=== PATIENT | male | born 1950 | race Caucasian/White ===

== ENCOUNTER 2016-09-07 23:07 | Inpatient (IN) | payer MEDICARE ==
[2016-09-07] MEDS ORDERED: LEVOFLOXACIN 750MG-D5W PMX 750 MG in DEXTROSE/WATER 1 150ML.BAG IVPB STA (23:18)
[2016-09-07] MEDS ORDERED: methylPREDNISolone SOD SUCCI 125 MG/2 ML VIAL IV STA (23:18)
[2016-09-07] MEDS ORDERED: IPRATROPIUM-ALBUTEROL 3 ML NEB INHALATION STA (23:20)
--- NOTE | 2016-09-07 23:23 | ED ---
SOB HPI - General Chief Complaint: Shortness of Breath Stated Complaint: DAV Time Seen by Provider: 09/07/16 23:09 Source: patient, EMS Mode of arrival: EMS - History of Present Illness Initial Comments: Is a 66-year-old male with a history of COPD and afib presents emergency department for worsening shortness of breath or he states that he's been having symptoms over the last 3 months. He's been on 3 courses of antibiotics and on multiple doses of steroids. He is not improved. He was seen by a home care nurse earlier today who gave him a shot of Rocephin and Depo-Medrol. He was told that he did not improve that he should come to the hospital. Patient states he felt more short of breath or decided to come in. He states that he is coughing up some sputum the states is green. He feels chills all the time however no fevers. He denies any lower extremity swelling. No chest pain. No other complaints. - Related Data Home Medications Medication Instructions Recorded Confirmed ALPRAZolam [Xanax] 0.5 mg PO TID PRN 12/06/13 09/07/16 Carvedilol [Coreg] 6.25 mg PO BID 12/06/13 09/07/16 Cholecalciferol [Vitamin D3] 1 tab PO DAILY 12/06/13 09/07/16 Cyanocobalamin [Vitamin B-12] 500 mcg PO DAILY@1200 12/06/13 09/07/16 DULoxetine HCL [Cymbalta] 60 mg PO HS 12/06/13 09/07/16 Docusate Sodium [Stool Softener] 100 mg PO BID 12/06/13 09/07/16 Dutasteride/Tamsulosin HCl [Jennifer 1 cap PO DAILY 12/06/13 09/07/16 0.5-0.4 mg Capsule] Insulin NPL/Insulin Lispro 60 unit SQ W/SUPPER 12/06/13 09/07/16 [humaLOG Mix 75-25 Kwikpen] Ipratropium/Albuterol Sulfate 1 puff INHALATION RT-BID 12/06/13 09/07/16 [Combivent Respimat Inhaler] Ipratropium/Albuterol Sulfate 3 ml INHALATION RT-QID 12/06/13 09/07/16 [Duoneb 0.5 mg-3 mg/3 ml Soln] Levothyroxine Sodium [Synthroid] 75 mcg PO DAILY 12/06/13 09/07/16 Montelukast [Singulair] 10 mg PO DAILY 12/06/13 09/07/16 Omeprazole [PriLOSEC] 20 mg PO DAILY 12/06/13 09/07/16 Rivaroxaban [Xarelto] 15 mg PO DAILY 12/06/13 09/07/16 Silver Sulfadiazine [Silvadene 1 applicate TOPICAL BID 12/06/13 09/07/16 Cream] Simvastatin [Zocor] 40 mg PO HS 12/06/13 09/07/16 Tamsulosin HCl [Flomax] 0.4 mg PO DAILY 12/06/13 09/07/16 Torsemide [Demadex] 50 mg PO BID 12/06/13 09/07/16 Acetaminophen/Diphenhydramine 1 tab PO HS PRN 09/07/16 09/07/16 [Tylenol PM 500-25mg] Amitriptyline HCl 50 mg PO HS 09/07/16 09/07/16 Clindamycin HCl [Cleocin] 300 mg PO TID 09/07/16 09/07/16 Diclofenac Sodium [Voltaren Gel] 1 applic TOPICAL Q6H PRN 09/07/16 09/07/16 HYDROcodone/APAP 10-325MG [[place] 1 tab PO Q4HR PRN 09/07/16 09/07/16 10-325] Lactulose 10 gm PO Q8H PRN 09/07/16 09/07/16 Metolazone [Zaroxolyn] 2.5 mg PO DAILY 09/07/16 09/07/16 Previous Rx's Medication Instructions Recorded Potassium Chloride [Klor-Con 20] 40 meq PO DAILY #30 tab 12/06/13 Allergies Allergy/AdvReac Type Severity Reaction Status Date / Time Penicillins Allergy Unknown Verified 09/07/16 23:52 Childhood pregabalin [From Lyrica] AdvReac Confusion Verified 09/07/16 23:52 Review of Systems ROS Statement: Those systems with pertinent positive or pertinent negative responses have been documented in the HPI. ROS Other: All systems not noted in ROS Statement are negative. Past Medical History Past Medical History: COPD, Diabetes Mellitus, Hyperlipidemia, Hypertension Additional Past Medical History / Comment(s): hip pain, hypothyroidism, History of Any Multi-Drug Resistant Organisms: None Reported Past Surgical History: Bariatric Surgery, Hernia Repair Additional Past Surgical History / Comment(s): lumbar fusion, Past Psychological History: Anxiety Smoking Status: Current every day smoker Past Alcohol Use History: None Reported Past Drug Use History: None Reported General Exam - General Exam Comments Initial Comments: Constitutional: Awake alert Appears comfortable Head: Normocephalic atraumatic Eyes: no conjunctival injection No scleral icterus EOMI Neck: No JVD Supple Heart: Irregularly irregular normal S1-S2 no murmurs Lungs: There is expiratory wheezing bilaterally No rales Abdomen: Soft nondistended nontender Extremities: Non edematous DP pulses intact Radial pulses intact Neuro: A&Ox3 No focal neurologic deficits Psych: Appropriate mood and affect Course Vital Signs 09/07/16 09/07/16 09/07/16 23:09 23:17 23:31 Temperature 98.2 F Pulse Rate 88 78 Respiratory 20 20 Rate Blood Pressure 174/85 O2 Sat by Pulse 100 Oximetry 09/07/16 09/08/16 23:48 00:00 Temperature Pulse Rate 90 85 Respiratory 18 Rate Blood Pressure 147/60 O2 Sat by Pulse 100 Oximetry - Reevaluation(s) Reevaluation #1: 09/07/16 23:25 EKG showing it to fibrillation with a rate of 80. No ST segment changes or T- wave inversions. QTC is 433. Other intervals are normal. No ectopy. Medical Decision Making - Medical Decision Making This is a 66-year-old male presents emergency department for shortness of breath. He has a history of COPD. He is been on multiple courses of antibiotics and steroids over the last 3 months however continues to worsen. Nares stated that he felt the worst they've never felt her last 3 months decided to come in. He was wheezy bilaterally. Chest x-ray shows possible infiltrate however it appears chronic. He has no leukocytosis. He does have chronic hypercapnic respiratory failure that is well compensated. I started him on breathing treatments and he states that he feels improved. I also gave him Levaquin. Spoke with Dr. Maki who wanted Dr. Grayson Jade to see the patient. Patient was updated that he will be admitted. All questions were answered. - Lab Data Result diagrams: 09/07/16 23:15 09/07/16 23:15 Lab Results 09/07/16 09/07/16 09/07/16 Range/Units 23:15 23:15 23:15 WBC 10.0 (3.8-10.6) k/uL RBC 4.76 (4.30-5.90) m/uL Hgb 13.0 (13.0-17.5) gm/dL Hct 42.4 (39.0-53.0) % MCV 89.0 (80.0-100.0) fL MCH 27.3 (25.0-35.0) pg MCHC 30.7 L (31.0-37.0) g/dL RDW 15.5 (11.5-15.5) % Plt Count 238 (150-450) k/uL Neutrophils % 85 % Lymphocytes % 10 % Monocytes % 3 % Eosinophils % 1 % Basophils % 0 % Neutrophils # 8.5 H (1.3-7.7) k/uL Lymphocytes # 1.0 (1.0-4.8) k/uL Monocytes # 0.3 (0-1.0) k/uL Eosinophils # 0.1 (0-0.7) k/uL Basophils # 0.0 (0-0.2) k/uL Hypochromasia Moderate PT (9.0-12.0) sec INR (<1.1) APTT (22.0-30.0) sec VBG pH (7.31-7.41) VBG pCO2 (37-51) mmHg VBG HCO3 (24-28) mmol/L Sodium 136 L (137-145) mmol/L Potassium 4.5 (3.5-5.1) mmol/L Chloride 79 L* (98-107) mmol/L Carbon Dioxide 51 H* (22-30) mmol/L Anion Gap 6 mmol/L BUN 85 H* (9-20) mg/dL Creatinine 0.80 (0.66-1.25) mg/dL Est GFR (MDRD) Af Amer >60 (>60 ml/min/1.73 sqM) Est GFR (MDRD) Non-Af >60 (>60 ml/min/1.73 sqM) Glucose 182 H (74-99) mg/dL Plasma Lactic Acid Elias (0.7-2.0) mmol/L Calcium 9.6 (8.4-10.2) mg/dL Total Bilirubin 0.4 (0.2-1.3) mg/dL AST 16 L (17-59) U/L ALT 31 (21-72) U/L Alkaline Phosphatase 105 (38-126) U/L Total Creatine Kinase <20 L (55-170) U/L CK-MB (CK-2) 1.4 (0.0-2.4) ng/mL CK-MB (CK-2) Rel Index 0.0 Troponin I <0.012 (0.000-0.034) ng/mL NT-Pro-B Natriuret Pep pg/mL Total Protein 6.1 L (6.3-8.2) g/dL Albumin 3.3 L (3.5-5.0) g/dL 09/07/16 09/07/16 09/07/16 Range/Units 23:15 23:15 23:15 WBC (3.8-10.6) k/uL RBC (4.30-5.90) m/uL Hgb (13.0-17.5) gm/dL Hct (39.0-53.0) % MCV (80.0-100.0) fL MCH (25.0-35.0) pg MCHC (31.0-37.0) g/dL RDW (11.5-15.5) % Plt Count (150-450) k/uL Neutrophils % % Lymphocytes % % Monocytes % % Eosinophils % % Basophils % % Neutrophils # (1.3-7.7) k/uL Lymphocytes # (1.0-4.8) k/uL Monocytes # (0-1.0) k/uL Eosinophils # (0-0.7) k/uL Basophils # (0-0.2) k/uL Hypochromasia PT 12.4 H (9.0-12.0) sec INR 1.3 (<1.1) APTT 28.5 (22.0-30.0) sec VBG pH (7.31-7.41) VBG pCO2 (37-51) mmHg VBG HCO3 (24-28) mmol/L Sodium (137-145) mmol/L Potassium (3.5-5.1) mmol/L Chloride (98-107) mmol/L Carbon Dioxide (22-30) mmol/L Anion Gap mmol/L BUN (9-20) mg/dL Creatinine (0.66-1.25) mg/dL Est GFR (MDRD) Af Amer (>60 ml/min/1.73 sqM) Est GFR (MDRD) Non-Af (>60 ml/min/1.73 sqM) Glucose (74-99) mg/dL Plasma Lactic Acid Elias 1.3 (0.7-2.0) mmol/L Calcium (8.4-10.2) mg/dL Total Bilirubin (0.2-1.3) mg/dL AST (17-59) U/L ALT (21-72) U/L Alkaline Phosphatase (38-126) U/L Total Creatine Kinase (55-170) U/L CK-MB (CK-2) (0.0-2.4) ng/mL CK-MB (CK-2) Rel Index Troponin I (0.000-0.034) ng/mL NT-Pro-B Natriuret Pep 214 pg/mL Total Protein (6.3-8.2) g/dL Albumin (3.5-5.0) g/dL 09/07/16 Range/Units 23:47 WBC (3.8-10.6) k/uL RBC (4.30-5.90) m/uL Hgb (13.0-17.5) gm/dL Hct (39.0-53.0) % MCV (80.0-100.0) fL MCH (25.0-35.0) pg MCHC (31.0-37.0) g/dL RDW (11.5-15.5) % Plt Count (150-450) k/uL Neutrophils % % Lymphocytes % % Monocytes % % Eosinophils % % Basophils % % Neutrophils # (1.3-7.7) k/uL Lymphocytes # (1.0-4.8) k/uL Monocytes # (0-1.0) k/uL Eosinophils # (0-0.7) k/uL Basophils # (0-0.2) k/uL Hypochromasia PT (9.0-12.0) sec INR (<1.1) APTT (22.0-30.0) sec VBG pH 7.40 (7.31-7.41) VBG pCO2 92 H* (37-51) mmHg VBG HCO3 56 H* (24-28) mmol/L Sodium (137-145) mmol/L Potassium (3.5-5.1) mmol/L Chloride (98-107) mmol/L Carbon Dioxide (22-30) mmol/L Anion Gap mmol/L BUN (9-20) mg/dL Creatinine (0.66-1.25) mg/dL Est GFR (MDRD) Af Amer (>60 ml/min/1.73 sqM) Est GFR (MDRD) Non-Af (>60 ml/min/1.73 sqM) Glucose (74-99) mg/dL Plasma Lactic Acid Elias (0.7-2.0) mmol/L Calcium (8.4-10.2) mg/dL Total Bilirubin (0.2-1.3) mg/dL AST (17-59) U/L ALT (21-72) U/L Alkaline Phosphatase (38-126) U/L Total Creatine Kinase (55-170) U/L CK-MB (CK-2) (0.0-2.4) ng/mL CK-MB (CK-2) Rel Index Troponin I (0.000-0.034) ng/mL NT-Pro-B Natriuret Pep pg/mL Total Protein (6.3-8.2) g/dL Albumin (3.5-5.0) g/dL Disposition Clinical Impression: COPD exacerbation Disposition: ADMITTED IP TO THIS HOSP Condition: Stable
[2016-09-07 23:45] LABS: Basophils % (A) 0 %; CHCM 30.5; Eosinophils # (A) 0.1 k/uL (0-0.7); Eosinophils % (A) 1 %; HCT 42.4 % (39.0-53.0); Hypochromasia Moderate; Luc % (Auto) 1; Lymphocytes % (A) 10 %; MCH 27.3 pg (25.0-35.0); MCHC 30.7 g/dL (31.0-37.0); Mean Platelet Volume 7.3; Monocytes # (A) 0.3 k/uL (0-1.0); Monocytes % (A) 3 %; Neutrophils # (A) 8.5 k/uL (1.3-7.7); Neutrophils % (A) 85 %; RBC 4.76 m/uL (4.30-5.90); RDW 15.5 % (11.5-15.5); WBC (Perox) 10.36
[2016-09-07 23:52] LABS: INR 1.3 (<1.1); Partial Thromboplastin Time 28.5 sec (22.0-30.0); Prothrombin Time 12.4 sec (9.0-12.0)
[2016-09-07 23:54] LABS: ALT 31 U/L (21-72); AST 16 U/L (17-59); Alkaline Phosphatase 105 U/L (38-126); Calcium 9.6 mg/dL (8.4-10.2); Glucose 182 mg/dL (74-99); Non-African American GFR(MDRD) >60 (>60 ml/min/1.73 sqM); Potassium 4.5 mmol/L (3.5-5.1); Sodium 136 mmol/L (137-145); Total Bilirubin 0.4 mg/dL (0.2-1.3); Total Protein 6.1 g/dL (6.3-8.2)
[2016-09-07 23:59] LABS: VBG PH 7.4 (7.31-7.41)
[2016-09-08] LABS: Anion Gap 6 mmol/L
[2016-09-08 00:04] LABS: Blood Urea Nitrogen 85 mg/dL (9-20); Carbon Dioxide 51 mmol/L (22-30); Chloride 79 mmol/L (98-107)
[2016-09-08 00:06] LABS: Creatine Kinase <20 U/L (55-170)
--- NOTE | 2016-09-08 00:11 | XR ---
EXAM: XR Chest, 1 View. CLINICAL HISTORY: Reason: sob TECHNIQUE: Frontal view of the chest. COMPARISON: CXR 12/06/13 FINDINGS: Lungs: Left lower lobe atelectasis and infiltrate, similar to prior study. Right basilar atelectasis. Pleural space: Small left pleural effusion. No pneumothorax. Heart: The heart size appears enlarged, likely from projection also stable. Mediastinum: Calcified tortuous aorta, otherwise unremarkable. Bones/joints: Unremarkable. IMPRESSION: Left lower lobe atelectasis and infiltrate, similar to prior study. Right basilar atelectasis. Small left pleural effusion.
[2016-09-08 00:19] LABS: Creatine Kinase MB 1.4 ng/mL (0.0-2.4); Troponin I <0.012 ng/mL (0.000-0.034)
[2016-09-08] MEDS ORDERED: HYDROcodone/APAP 10-325MG 1 EACH TAB PO PRN ×2 (01:15→08:11)
[2016-09-08] MEDS: IPRATROPIUM-ALBUTEROL 3 ML NEB INHALATION PRN ×2 (03:43→07:25)
[2016-09-08] MEDS: methylPREDNISolone SOD SUCCI 125 MG/2 ML VIAL IV SCH ×2 (05:25→13:34)
[2016-09-08 07:09] LABS: Glucose,Whole Blood 232 mg/dL (75-99)
[2016-09-08] MEDS ORDERED: DICLOFENAC SODIUM GEL 100 GM TUBE TOPICAL PRN (08:11)
[2016-09-08] MEDS: INSULIN LISPRO (humaLOG) 300 UNIT/3 ML VIAL SQ SCH ×2 (08:11→13:34)
[2016-09-08] MEDS ORDERED: LACTULOSE 20 GM/30 ML CUP PO PRN (08:11)
[2016-09-08] MEDS ORDERED: ALPRAZolam 0.5 MG TAB PO PRN (08:11)
[2016-09-08] MEDS ORDERED: RX INFO: IV CONTRAST WAS GIVEN 1 EACH MISC MISCELLANE PRN (08:15)
[2016-09-08] MEDS ORDERED: CARVEDILOL 6.25 MG TAB PO SCH (08:15)
[2016-09-08 08:17] VITALS: BP 145/80; RESP 16; TEMP 97.9
[2016-09-08] MEDS ORDERED: LEVOTHYROXINE 75 MCG TAB PO SCH (08:30)
[2016-09-08] MEDS ORDERED: RIVAROXABAN 15 MG TAB PO SCH (08:30)
[2016-09-08] MEDS ORDERED: POTASSIUM CHLORIDE ER 20 MEQ TAB.ER PO SCH (09:00)
[2016-09-08] MEDS ORDERED: CLINDAMYCIN 150 MG CAP PO SCH (09:00)
[2016-09-08] MEDS ORDERED: MONTELUKAST 10 MG TAB PO SCH (09:00)
[2016-09-08] MEDS ORDERED: METOLAZONE 2.5 MG TAB PO SCH (09:00)
[2016-09-08] MEDS ORDERED: TORSEMIDE 20 MG TAB PO SCH (09:00)
[2016-09-08] MEDS ORDERED: FINASTERIDE 5 MG TAB PO SCH (09:00)
[2016-09-08] MEDS ORDERED: DOCUSATE 100 MG CAP PO SCH (09:00)
[2016-09-08] MEDS ORDERED: TAMSULOSIN 0.4 MG CAP.ER.24H PO SCH (09:00)
--- NOTE | 2016-09-08 11:10 | P.CNPUL ---
History of Present Illness Consult date: 09/08/16 Requesting physician: Jose Daniel Maki Reason for consult: COPD Chief complaint: shortness of breath History of present illness: Mr. Albin Moeller is a 66-year-old male being evaluated and examined today on the fifth floor with family at bedside. He has a history of COPD severe in nature. He presented to the ER last night with shortness of breath that has been going on for the last 3 months. He has been on 3 different courses of antibiotics and 3 courses of steroids with outpatient treatment failure, therefore agreed to come to the hospital per his primary care physician. The patient currently uses 2 L of oxygen at home and was using up to 4 L of oxygen inpatient for his current stay. The patient has an intermittent productive cough with green sputum which is thick. He denies any fever or chills at this time. The patient also has medical debility and is bedbound at home, however he has a lift which he uses to get in and out of the pool 3 times a week when he is not sick. Review of Systems 14 point review of system has been completed and is otherwise negative unless stated in the HPI Past Medical History Past Medical History: Atrial Fibrillation, COPD, Diabetes Mellitus, Hyperlipidemia, Hypertension, Renal Disease Additional Past Medical History / Comment(s): hip pain, hypothyroidism, low kidney function History of Any Multi-Drug Resistant Organisms: None Reported Past Surgical History: Bariatric Surgery, Hernia Repair Additional Past Surgical History / Comment(s): lumbar fusion '05 Past Anesthesia/Blood Transfusion Reactions: No Reported Reaction Past Psychological History: Anxiety Smoking Status: Current every day smoker Past Alcohol Use History: None Reported Past Drug Use History: None Reported Medications and Allergies Home Medications Medication Instructions Recorded Confirmed Type ALPRAZolam [Xanax] 0.5 mg PO TID PRN 12/06/13 09/07/16 History Carvedilol [Coreg] 6.25 mg PO BID 12/06/13 09/07/16 History Cholecalciferol [Vitamin D3] 1 tab PO DAILY 12/06/13 09/07/16 History Cyanocobalamin [Vitamin B-12] 500 mcg PO DAILY@1200 12/06/13 09/07/16 History DULoxetine HCL [Cymbalta] 60 mg PO HS 12/06/13 09/07/16 History Docusate Sodium [Stool Softener] 100 mg PO BID 12/06/13 09/07/16 History Dutasteride/Tamsulosin HCl [[place]ennifer 1 cap PO DAILY 12/06/13 09/07/16 History 0.5-0.4 mg Capsule] Insulin NPL/Insulin Lispro 60 unit SQ W/SUPPER 12/06/13 09/07/16 History [humaLOG Mix 75-25 Kwikpen] Ipratropium/Albuterol Sulfate 1 puff INHALATION RT-BID 12/06/13 09/07/16 History [Combivent Respimat Inhaler] Ipratropium/Albuterol Sulfate 3 ml INHALATION RT-QID 12/06/13 09/07/16 History [Duoneb 0.5 mg-3 mg/3 ml Soln] Levothyroxine Sodium [Synthroid] 75 mcg PO DAILY 12/06/13 09/07/16 History Montelukast [Singulair] 10 mg PO DAILY 12/06/13 09/07/16 History Omeprazole [PriLOSEC] 20 mg PO DAILY 12/06/13 09/07/16 History Rivaroxaban [Xarelto] 15 mg PO DAILY 12/06/13 09/07/16 History Silver Sulfadiazine [Silvadene 1 applicate TOPICAL BID 12/06/13 09/07/16 History Cream] Simvastatin [Zocor] 40 mg PO HS 12/06/13 09/07/16 History Tamsulosin HCl [Flomax] 0.4 mg PO DAILY 12/06/13 09/07/16 History Torsemide [Demadex] 50 mg PO BID 12/06/13 09/07/16 History Acetaminophen/Diphenhydramine 1 tab PO HS PRN 09/07/16 09/07/16 History [Tylenol PM 500-25mg] Amitriptyline HCl 50 mg PO HS 09/07/16 09/07/16 History Clindamycin HCl [Cleocin] 300 mg PO TID 09/07/16 09/07/16 History Diclofenac Sodium [Voltaren Gel] 1 applic TOPICAL Q6H PRN 09/07/16 09/07/16 History HYDROcodone/APAP 10-325MG [[place] 1 tab PO Q4HR PRN 09/07/16 09/07/16 History 10-325] Lactulose 10 gm PO Q8H PRN 09/07/16 09/07/16 History Metolazone [Zaroxolyn] 2.5 mg PO DAILY 09/07/16 09/07/16 History Allergies Allergy/AdvReac Type Severity Reaction Status Date / Time Penicillins Allergy Unknown Verified 09/07/16 23:52 Childhood pregabalin [From Lyrica] AdvReac Confusion Verified 09/07/16 23:52 Physical Exam Vitals: Vital Signs Temp Pulse Pulse Resp BP BP Pulse Ox 09/08/16 07:37 92 09/08/16 07:25 95 95 09/08/16 07:00 97.9 F 95 16 145/80 97 09/08/16 03:55 80 09/08/16 03:43 80 09/08/16 02:50 96.8 F L 89 18 134/87 100 09/08/16 01:00 98.3 F 92 20 130/60 100 Intake and Output 09/07/16 09/08/16 09/08/16 22:59 06:59 14:59 Intake Total 240 Balance 240 Intake: Oral 240 Other: # Voids 1 GENERAL EXAM: Alert, resting up in bed. HEAD: Normocephalic. EYES: Normal reaction of pupils, equal size. NOSE: Clear with pink turbinates. THROAT: No erythema or exudates. NECK: No masses, no JVD. CHEST: No chest wall deformity. LUNGS: Patient has inspiratory and expiratory wheezing and rhonchi. He is also diminished at the bases. Lots of congestion noted CVS: S1 and S2 normal with no audible mumurs, regular rhythm. ABDOMEN: No hepatosplenomegaly, normal bowel sounds, no guarding or rigidity. EXTREMITIES: No edema noted, pedal pulses palpable. SKIN: No rashes CENTRAL NERVOUS SYSTEM: No focal deficits, tone is weak in all 4 extremities. Results - Laboratory Findings CBC and BMP: 09/07/16 23:15 09/07/16 23:15 PT/INR, D-dimer PT 12.4 sec (9.0-12.0) H 09/07/16 23:15 INR 1.3 (<1.1) 09/07/16 23:15 Abnormal lab findings: Abnormal Labs 09/08/16 07:05 POC Glucose (mg/dL) 232 H - Diagnostic Findings Chest x-ray: report reviewed, image reviewed Assessment and Plan Plan: Assessment Acute exacerbation of COPD Tracheobronchitis Diabetes mellitus Hypertension Plan Continue the patient on IV antibiotics and IV steroids as is as well as aerosol bronchodilators. The patient will go for a CAT scan later today and further treatment will be adjusted pending what that reveals. We will continue monitoring labs and adjust treatment as necessary.
[2016-09-08 11:34] LABS: Glucose,Whole Blood 284 mg/dL (75-99)
--- NOTE | 2016-09-08 11:35 | CT ---
EXAMINATION TYPE: CT chest w con DATE OF EXAM: 09/08/2016 10:25 AM COMPARISON: NONE HISTORY: Patient poor historian. Rule out COPD/infiltrate. CT DLP: 1232.7 mGycm, Automated exposure control for dose reduction was used. CONTRAST: Performed injected with 80 mL of Visipaque 320. TECHNIQUE: Axial images were obtained at 5 mm thick sections. Reconstructed images are reviewed on [employer] computer in the coronal plane. FINDINGS: Portion of the thyroid visualized is normal. Small area of pneumonitis is in the left suprahilar region. Series 5 image 28 is mild infiltrate is w ithin the dependent portions of the lung bases bilaterally. This could be related atelectasis. No enlarged mediastinal or hilar adenopathy is evident. The ascending aorta diameter at the level o f the main pulmonary artery is 3.3 cm. The main pulmonary artery diameter at the bifurcation is 3.3 cm. There may be some coronary artery calcification present. Limited CT sections are obtained through the upper abdomen. Postsurgical changes are within the stoma ch. Gallstones are present. Bilateral renal cysts are present. IMPRESSIONS: 1. Bibasilar infiltrates. Correlate for atelectasis. Developing pneumonia could be considered. This c ould be followed as clinically indicated. 2. Cholelithiasis
[2016-09-08 11:47] VITALS: PULSE 95
--- NOTE | 2016-09-08 11:59 | P.DS ---
Providers Date of admission: 09/08/16 00:41 Expected date of discharge: 09/08/16 Attending physician: Jose Daniel Maki Consults: Dr. Jade Primary care physician: Jose Daniel Maki [place] [facility] Course: A 66-year-old male who is well known to Dr. Maki service presented on the day of admission from home after patient reportedly was experiencing an episode of shortness of breath. Patient stated he had been having the symptoms for the past 3 months. And he had been on 3 courses of antibiotics and on multiple doses of steroids there's been no noted improvement. Patient states home care nurse to come in earlier in the day and gave him a shot of Rocephin and Depo- Medrol with no noted improvement. He states he was told to come into the hospital to be evaluated. Patient was being seen this morning with the attending the bedside. Patient is adamant that he be discharged cannot stay at the hospital cannot sleep in the hospital is insisting that he be discharged home. Patient has limited mobility is wheelchair bedbound. Patient states that he actually feels better there's less shortness of breath he feels he is back to his baseline and wants to go home. Patient did have a CAT scan of the chest it did show bibasilar infiltrates developing pneumonia would need to be considered. Patient states that he uses oxygen around the clock 2 L at home. He has had intermittent episodes of coughing has been coughing up greenish color. Secretions influenza A and B was negative Patient has a history of diabetes, COPD, hyperlipidemia, hypertension atrial fibrillation. Patient is a current every day smoker. Patient has been medically debilitated with wheelchair bedbound for the past several years he uses a lift his provides for 24 7 care. According to the and the patient is not sick he does go in and out of a pool 3 times a week for therapy Subsequent the patient was discharged home with the plan that Dr. Maki will be making a home visit on Sunday to see the patient patient is to resume same home care Impression discharge diagnosis Chronic physical debility limited mobility wheelchair bedbound Morbid obesity BMI 50 Current every day smoker COPD Chronic hypoxic respiratory failure supplement 2 L nasal cannula oxygen around the clock History of bariatric surgery for weight loss Anxiety disorder nonspecified Acute exacerbation COPD with tracheobronchitis Chronic bronchitis Chronic dyspnea Essential hypertension Morbid obesity suspect obstructive sleep apnea on no CPAP therapy no prior sleep study Peripheral neuropathy likely due to type 2 diabetes Suspect cor pulmonale Chronic persistent atrial fibrillation on Xarelto 15 mg daily The above dictated assessment and findings were discussed with Dr. Maki Impression and the plan of care have been dictated as directed. Melisa Reid nurse practitioner acting as a scribe for Dr. Maki Patient Condition at Discharge: Stable Plan - Discharge Summary New Discharge Prescriptions: Levofloxacin [Levaquin] 500 mg PO Q24H #10 tab Discharge Medication List ALPRAZolam [Xanax] 0.5 mg PO TID PRN 12/06/13 [History] Carvedilol [Coreg] 6.25 mg PO BID 12/06/13 [History] Cholecalciferol [Vitamin D3] 1 tab PO DAILY 12/06/13 [History] Cyanocobalamin [Vitamin B-12] 500 mcg PO DAILY@1200 12/06/13 [History] DULoxetine HCL [Cymbalta] 60 mg PO HS 12/06/13 [History] Docusate Sodium [Stool Softener] 100 mg PO BID 12/06/13 [History] Dutasteride/Tamsulosin HCl [Jennifer 0.5-0.4 mg Capsule] 1 cap PO DAILY 12/06/13 [ History] Insulin NPL/Insulin Lispro [humaLOG Mix 75-25 Kwikpen] 60 unit SQ W/SUPPER 12/06 [History] Ipratropium/Albuterol Sulfate [Combivent Respimat Inhaler] 1 puff INHALATION RT- BID 12/06/13 [History] Ipratropium/Albuterol Sulfate [Duoneb 0.5 mg-3 mg/3 ml Soln] 3 ml INHALATION RT- QID 12/06/13 [History] Levothyroxine Sodium [Synthroid] 75 mcg PO DAILY 12/06/13 [History] Montelukast [Singulair] 10 mg PO DAILY 12/06/13 [History] Omeprazole [PriLOSEC] 20 mg PO DAILY 12/06/13 [History] Potassium Chloride [Klor-Con 20] 40 meq PO DAILY #30 tab 12/06/13 [Rx] Rivaroxaban [Xarelto] 15 mg PO DAILY 12/06/13 [History] Silver Sulfadiazine [Silvadene Cream] 1 applicate TOPICAL BID 12/06/13 [History] Simvastatin [Zocor] 40 mg PO HS 12/06/13 [History] Tamsulosin HCl [Flomax] 0.4 mg PO DAILY 12/06/13 [History] Torsemide [Demadex] 50 mg PO BID 12/06/13 [History] Acetaminophen/Diphenhydramine [Tylenol PM 500-25mg] 1 tab PO HS PRN 09/07/16 [ History] Amitriptyline HCl 50 mg PO HS 09/07/16 [History] Clindamycin HCl [Cleocin] 300 mg PO TID 09/07/16 [History] Diclofenac Sodium [Voltaren Gel] 1 applic TOPICAL Q6H PRN 09/07/16 [History] HYDROcodone/APAP 10-325MG [[place] 10-325] 1 tab PO Q4HR PRN 09/07/16 [History] Lactulose 10 gm PO Q8H PRN 09/07/16 [History] Metolazone [Zaroxolyn] 2.5 mg PO DAILY 09/07/16 [History] Levofloxacin [Levaquin] 500 mg PO Q24H #10 tab 09/08/16 [Rx] Follow up Appointment(s)/Referral(s): Grayson Jade MD [STAFF PHYSICIAN] - 1 Week Jose Daniel Maki MD [Primary Care Provider] - 3 Days Activity/Diet/Wound Care/Special Instructions: Dr. Maki will see patient Sunday or Sunday next week for home visit Dr. Maki will set up in the outpatient setting for a home sleep study to be done Discharge Disposition: HOME SELF-CARE
[2016-09-08] MEDS ORDERED: CYANOCOBALAMIN 500 MCG TAB PO SCH (12:00)
[2016-09-08] MEDS ORDERED: IPRATROPIUM-ALBUTEROL 3 ML NEB INHALATION SCH (12:00)
--- NOTE | 2016-09-08 12:52 | P.HPIM ---
History of Present Illness H&P Date: 09/08/16 Chief Complaint: Shortness of breath A 66-year-old male presented on the day of admission to the emergency room via the EMS system which was activated after the patient reportedly was experiencing progressive shortness of breath different from baseline. Patient has reportedly been treated over the last several months with 3 courses of antibiotics as well as multiple doses of steroids. Patient was noted to be on Cleocin at home. Patient has limited mobility is wheelchair bedbound. Patient stated that his home care nurse did commode to the house on the day of the event and was given a dose of Rocephin as well as steroid. Patient stated his breathing did not improve notified the attending who advised the patient to come into the emergency room to be evaluated for the above-mentioned symptoms. Patient's chest x-ray showed left lower lobe atelectasis and infiltrate similar to a prior study small pleural effusion In the emergency room the temp is 98.2. Blood pressure was elevated at 174/80 11/06/1946 or 60 heart rate in the 90s. Review of Systems Essentially unremarkable except as mentioned in the present illness Past Medical History Past Medical History: Atrial Fibrillation, COPD, Diabetes Mellitus, Hyperlipidemia, Hypertension, Renal Disease Additional Past Medical History / Comment(s): hip pain, hypothyroidism, low kidney function History of Any Multi-Drug Resistant Organisms: None Reported Past Surgical History: Bariatric Surgery, Hernia Repair Additional Past Surgical History / Comment(s): lumbar fusion '05 Past Anesthesia/Blood Transfusion Reactions: No Reported Reaction Past Psychological History: Anxiety Smoking Status: Current every day smoker Past Alcohol Use History: None Reported Past Drug Use History: None Reported Medications and Allergies Home Medications Medication Instructions Recorded Confirmed Type ALPRAZolam [Xanax] 0.5 mg PO TID PRN 12/06/13 09/07/16 History Carvedilol [Coreg] 6.25 mg PO BID 12/06/13 09/07/16 History Cholecalciferol [Vitamin D3] 1 tab PO DAILY 12/06/13 09/07/16 History Cyanocobalamin [Vitamin B-12] 500 mcg PO DAILY@1200 12/06/13 09/07/16 History DULoxetine HCL [Cymbalta] 60 mg PO HS 12/06/13 09/07/16 History Docusate Sodium [Stool Softener] 100 mg PO BID 12/06/13 09/07/16 History Dutasteride/Tamsulosin HCl [Jennifer 1 cap PO DAILY 12/06/13 09/07/16 History 0.5-0.4 mg Capsule] Insulin NPL/Insulin Lispro 60 unit SQ W/SUPPER 12/06/13 09/07/16 History [humaLOG Mix 75-25 Kwikpen] Ipratropium/Albuterol Sulfate 1 puff INHALATION RT-BID 12/06/13 09/07/16 History [Combivent Respimat Inhaler] Ipratropium/Albuterol Sulfate 3 ml INHALATION RT-QID 12/06/13 09/07/16 History [Duoneb 0.5 mg-3 mg/3 ml Soln] Levothyroxine Sodium [Synthroid] 75 mcg PO DAILY 12/06/13 09/07/16 History Montelukast [Singulair] 10 mg PO DAILY 12/06/13 09/07/16 History Omeprazole [PriLOSEC] 20 mg PO DAILY 12/06/13 09/07/16 History Rivaroxaban [Xarelto] 15 mg PO DAILY 12/06/13 09/07/16 History Silver Sulfadiazine [Silvadene 1 applicate TOPICAL BID 12/06/13 09/07/16 History Cream] Simvastatin [Zocor] 40 mg PO HS 12/06/13 09/07/16 History Tamsulosin HCl [Flomax] 0.4 mg PO DAILY 12/06/13 09/07/16 History Torsemide [Demadex] 50 mg PO BID 12/06/13 09/07/16 History Acetaminophen/Diphenhydramine 1 tab PO HS PRN 09/07/16 09/07/16 History [Tylenol PM 500-25mg] Amitriptyline HCl 50 mg PO HS 09/07/16 09/07/16 History Clindamycin HCl [Cleocin] 300 mg PO TID 09/07/16 09/07/16 History Diclofenac Sodium [Voltaren Gel] 1 applic TOPICAL Q6H PRN 09/07/16 09/07/16 History HYDROcodone/APAP 10-325MG [[place] 1 tab PO Q4HR PRN 09/07/16 09/07/16 History 10-325] Lactulose 10 gm PO Q8H PRN 09/07/16 09/07/16 History Metolazone [Zaroxolyn] 2.5 mg PO DAILY 09/07/16 09/07/16 History Allergies Allergy/AdvReac Type Severity Reaction Status Date / Time Penicillins Allergy Unknown Verified 09/07/16 23:52 Childhood pregabalin [From Lyrica] AdvReac Confusion Verified 09/07/16 23:52 Physical Exam Vitals: Vital Signs Temp Pulse Pulse Resp BP BP Pulse Ox 09/08/16 11:07 88 09/08/16 10:54 88 09/08/16 08:00 95 16 09/08/16 07:37 92 09/08/16 07:25 95 95 09/08/16 07:00 97.9 F 95 16 145/80 97 09/08/16 03:55 80 09/08/16 03:43 80 09/08/16 02:50 96.8 F L 89 18 134/87 100 09/08/16 01:00 98.3 F 92 20 130/60 100 Intake and Output 09/07/16 09/08/16 09/08/16 22:59 06:59 14:59 Intake Total 240 360 Balance 240 360 Intake: Oral 240 360 Other: # Voids 1 1 GENERAL APPEARANCE: 66-year-old conversational dyspnea noted patient is alert, oriented, in no acute distress. Patient is adamant about being discharged he states he cannot sleep in the hospital is asking to be discharged to home at the bedside who states that she does provide 24 7 care to the patient and can take care of the patient at home VITAL SIGNS: Afebrile reviewed HEENT: Head is normocephalic and atraumatic. Pupils are equal and reactive. The nares are patent. Oropharynx is clear without lesions. NECK: Supple without lymphadenopathy. Traches midline. HEART: S1, S2. Regular rate and rhythm. LUNGS: No crackles or wheezes are heard diminished at the bases otherwise clear. Sats on 4 L 95% no cough noted no use of accessory muscles to breathe ABDOMEN: Soft, nontender, nondistended with good bowel sounds. No peritoneal signs. No palpable organomegaly or masses. EXTREMITIES: Normal skin color and turgor. No cyanosis, rash, ulceration, clubbing or edema. Radial pedal pulses are 2/4 bilaterally. NEUROLOGICAL: No focal deficits. Strength and sensation are grossly intact. Results CBC & Chem 7: 09/07/16 23:15 09/07/16 23:15 Labs: Abnormal Lab Results - Last 24 Hours (Table) 09/08/16 09/08/16 Range/Units 07:05 11:27 POC Glucose (mg/dL) 232 H 284 H (75-99) mg/dL Thrombosis Risk Factor Assmnt - Choose All That Apply Each Risk Factor Represents 2 Points: Age 61-74 years Thrombosis Risk Factor Assessment Total Risk Factor Score: 2 Thrombosis Risk Factor Assessment Level: Low Risk Assessment and Plan Plan: Impression Chronic physical debility limited mobility wheelchair bedbound Morbid obesity BMI 50 Current every day smoker COPD Chronic hypoxic respiratory failure supplement 2 L nasal cannula oxygen around the clock History of bariatric surgery for weight loss Anxiety disorder nonspecified Acute exacerbation COPD with tracheobronchitis Chronic bronchitis Chronic dyspnea Essential hypertension Morbid obesity suspect obstructive sleep apnea on no CPAP therapy no prior sleep study Peripheral neuropathy likely due to type 2 diabetes Suspect cor pulmonale Chronic persistent atrial fibrillation on Xarelto 15 mg daily Plan CAT scan of the chest to be obtained with the plan discharge today Dr. Maki will see patient in a home visit Dr. Maki will set up for outpatient home sleep study to be done Resume home meds as appropriate Add Levaquin to the Cleocin the patient is on at home Prepped for discharge The above dictated assessment and findings were discussed with Dr. Maki. Impression and the plan of care have been dictated as directed. Melisa Reid nurse practitioner acting as a scribe for Dr. Maki
[2016-09-08] MEDS ORDERED: INSULIN NPL/INSULIN LISPRO 100 UNIT/ML 10 ML VIAL (Humalog 75/25) SQ SCH (17:30)
[2016-09-08] MEDS ORDERED: BUDESONIDE 0.5 MG/2 ML NEBU INHALATION SCH (20:00)
[2016-09-08] MEDS ORDERED: ATORVASTATIN 20 MG TAB PO SCH (21:00)
[2016-09-08] MEDS ORDERED: DULoxetine HCL 60 MG CAPSULE.DR PO SCH (21:00)
[2016-09-08] MEDS ORDERED: LEVOFLOXACIN 500 MG TAB PO SCH (23:00)
== END 2016-09-08 14:40 | disposition home health service (06) | DRG 191 ==
LOC: EC 23:07 → 5MS5E 09-08 00:41
PROVIDERS: ADMIT Family Medicine; ATTEND Family Medicine
DX: J44.1 Chronic obstructive pulmonary disease with (acute) exacerbation (principal); I48.1 Persistent atrial fibrillation; J96.11 Chronic respiratory failure with hypoxia; J96.12 Chronic respiratory failure with hypercapnia; I27.81 Cor pulmonale (chronic); E11.42 Type 2 diabetes mellitus with diabetic polyneuropathy; I48.2 Chronic atrial fibrillation; Z99.81 Dependence on supplemental oxygen; E66.01 Morbid (severe) obesity due to excess calories; I10 Essential (primary) hypertension; E03.9 Hypothyroidism, unspecified; E78.5 Hyperlipidemia, unspecified; F17.200 Nicotine dependence, unspecified, uncomplicated; F41.9 Anxiety disorder, unspecified; G47.33 Obstructive sleep apnea (adult) (pediatric); Z68.43 Body mass index [BMI] 50.0-59.9, adult; Z74.01 Bed confinement status; Z98.84 Bariatric surgery status; Z99.3 Dependence on wheelchair; Z79.01 Long term (current) use of anticoagulants; Z79.899 Other long term (current) drug therapy; Z88.0 Allergy status to penicillin; Z88.8 Allergy status to other drugs, medicaments and biological substances
CPT/HCPCS: 36415; 71010; 71260; 80053; 82550; 82553; 82803; 83605; 83880; 84484; 85025; 85610; 85730; 87040; 87502; 93005; 94640; 94760; 96365; 96366; 96375; 99285